=== PATIENT | male | born 1965 | race Caucasian/White ===

== ENCOUNTER 2017-05-05 03:36 | Emergency (ER) | payer OTHER ==
--- NOTE | 2017-05-05 03:49 | ED Physician Documentation ---
PD HPI CHEST PAIN - Stated complaint Stated Complaint: CHEST PAIN - Chief complaint Chief Complaint: Cardiac - History obtained from History obtained from: Patient - History of Present Illness Timing - onset: Yesterday Timing - onset during: Light activity Timing - details: Gradual onset, Constant, Waxing and waning Pain level now: 6 Quality: Pain Location: Substernal Radiation: Other (no radiation) Improved by: Other (no ameliorating factors) Worsened by: Other (no exacerbating factors) Associated symptoms: No: Shortness of air, Diaphoresis, Nausea, Vomiting, Feeling faint / dizzy, General Weakness, Palpitations, Cough Similar symptoms before: Has not had sx before Recently seen: Not recently seen Review of Systems Constitutional: reports: Reviewed and negative Cardiac: reports: Chest pain / pressure. denies: Palpitations, Pedal edema, Calf pain Respiratory: reports: Reviewed and negative GI: reports: Reviewed and negative PD PAST MEDICAL HISTORY - Past Medical History Past Medical History: Yes Cardiovascular: None Respiratory: Asthma Neuro: None Endocrine/Autoimmune: None GI: None : None HEENT: None Psych: None Musculoskeletal: None Derm: None - Past Surgical History Past Surgical History: Yes General: Other - Present Medications Home Medications: Ambulatory Orders Medication Instructions Recorded Confirmed oxyCODONE/ACET 5/325 [Percocet 5 2 each PO Q6H PRN #14 tablet 05/05/17 mg/325 mg] - Allergies Allergies/Adverse Reactions: Allergies Allergy/AdvReac Type Severity Reaction Status Date / Time aspirin AdvReac Anaphylaxis Verified 05/05/17 03:46 NSAIDS (Non-Steroidal AdvReac Anaphylaxis Verified 05/05/17 03:46 Anti-Inflamma Sulfa (Sulfonamide AdvReac Unknown Verified 05/05/17 03:47 Antibiotics) - Social History Does the pt smoke?: No Smoking Status: Never smoker Does the pt drink ETOH?: No Does the pt have substance abuse?: No - Immunizations Immunizations are current?: Yes - POLST Patient has POLST: No PD ED PE NORMAL - Vitals Vital signs reviewed: Yes - General General: Alert and oriented X 3, No acute distress, Well developed/nourished - HEENT HEENT: Moist mucous membranes - Neck Neck: Supple, no meningeal sign - Cardiac Cardiac: RRR, No murmur, No gallop, No rub - Respiratory Respiratory: No respiratory distress, Clear bilaterally - Abdomen Abdomen: Soft, Non tender - Derm Derm: Normal color, Warm and dry - Extremities Extremities: No edema Results - Vitals Vitals: Vital Signs - 24 hr 05/05/17 05/05/17 05/05/17 03:42 03:52 04:02 Temperature 36.1 C L Heart Rate 96 69 61 Respiratory 19 18 15 Rate Blood Pressure 140/116 H 131/84 H 123/81 H O2 Saturation 99 97 95 05/05/17 05/05/17 05/05/17 04:38 05:02 05:14 Temperature Heart Rate 60 52 L 72 Respiratory 17 17 Rate Blood Pressure 130/87 H 126/92 H O2 Saturation 95 95 05/05/17 05/05/17 05/05/17 05:17 05:47 06:32 Temperature Heart Rate 66 53 L 61 Respiratory 17 17 17 Rate Blood Pressure 133/103 H 120/79 126/81 H O2 Saturation 95 95 95 05/05/17 06:52 Temperature Heart Rate 52 L Respiratory 18 Rate Blood Pressure 136/82 H O2 Saturation 96 Oxygen O2 Source Room air - EKG (time done) No standard instances Rate: Rate (enter#) (64) Rhythm: NSR [place]: Normal Intervals: Normal [place] QRS: Normal Ischemia: Normal ST segments #2 Rate: Rate (enter#) (58) Rhythm: NSR [place]: Normal Intervals: Normal [place] QRS: Normal Ischemia: Normal ST segments - Labs Labs: Laboratory Tests 05/05/17 05/05/17 05/05/17 03:47 03:47 03:47 WBC 9.2 RBC 4.82 Hgb 15.0 Hct 44.0 MCV 91.3 MCH 31.1 H MCHC 34.0 RDW 13.3 Plt Count 252 MPV 7.7 Neut # 5.9 Lymph # 2.2 [place] # 0.8 Eos # 0.3 Baso # 0.1 Absolute Nucleated RBC 0.01 Nucleated RBCs 0.1 Sodium 140 Potassium 3.8 Chloride 102 Carbon Dioxide 31 Anion Gap 7.0 BUN 16 Creatinine 1.1 Estimated GFR (MDRD) 71 L Glucose 145 H Calcium 11.1 H Total Bilirubin 0.7 AST 18 ALT 21 Alkaline Phosphatase 66 Troponin I < 0.04 Total Protein 7.5 Albumin 4.2 Globulin 3.3 Albumin/Globulin Ratio 1.3 Lipase 30 07/25/17 06:13 WBC RBC Hgb Hct MCV MCH MCHC RDW Plt Count MPV Neut # Lymph # [place] # Eos # Baso # Absolute Nucleated RBC Nucleated RBCs Sodium Potassium Chloride Carbon Dioxide Anion Gap BUN Creatinine Estimated GFR (MDRD) Glucose Calcium Total Bilirubin AST ALT Alkaline Phosphatase Troponin I < 0.04 Total Protein Albumin Globulin Albumin/Globulin Ratio Lipase - Rads (name of study) chest xray Radiology: Prelim report reviewed, See rad report PD MEDICAL DECISION MAKING - ED course Complexity details: reviewed results, re-evaluated patient, considered differential, d/w patient ED course: No relief with "GI cocktail" (maalox, lidocaine, donnatol), and mild and transient relief with 2mg IV morphine. EKG x 2 are unremarkable and troponin x 2 (2 hours apart) are negative (<0.04). Encouraged to return if worse in any way , and I instructed him to contact PMD to arrange immediate follow-up. Departure - Departure Disposition: 01 Home, Self Care Clinical Impression: Chest pain Condition: Good Instructions: ED Chest Pain Atypical Unkn Cause Follow-Up: Sergio Hanna MD [Primary Care Provider] - (Call to arrange for next available appointment) Prescriptions: oxyCODONE/ACET 5/325 [Percocet 5 mg/325 mg] 2 each PO Q6H PRN #14 tablet PRN Reason: Pain Forms: Activity restrictions Discharge Date/Time: 05/05/17 07:20
[2017-05-05] MEDS ORDERED: LIDOCAINE VISCOUS 2% 15 ML UDC MM STA (04:27)
[2017-05-05] MEDS ORDERED: MAG HYDROX/AL HYDROX/SIMETH 30 ML UDC PO STA (04:27)
[2017-05-05] MEDS ORDERED: PHENobarb/HYOSCY/ATROPINE/SCOP 5 ML SYRINGE PO STA (04:27)
[2017-05-05] MEDS ORDERED: LIDOCAINE VISCOUS 2% 15 ML UDC MM ONE (04:28)
[2017-05-05] MEDS ORDERED: PHENobarb/HYOSCY/ATROPINE/SCOP 5 ML SYRINGE PO ONE (04:28)
[2017-05-05] MEDS ORDERED: MAG HYDROX/AL HYDROX/SIMETH 30 ML UDC ONE (04:28)
[2017-05-05 04:37] LABS: BASOPHILS # (AUTO) 0.1 10^3/uL (0.0-0.1); EOSINOPHILS # (AUTO) 0.3 10^3/uL (0.0-0.7); EOSINOPHILS % (AUTO) 2.8 %; LYMPHOCYTES # (AUTO) 2.2 10^3/uL (1.5-3.5); LYMPHOCYTES % (AUTO) 24.2 %; MEAN CORPUSCULAR HEMOGLOBIN 31.1 pg (27.0-31.0); MEAN CORPUSCULAR VOLUME 91.3 fL (80.0-94.0); MEAN PLATELET VOLUME 7.7 fL (7.4-11.4); MONOCYTES # (AUTO) 0.8 10^3/uL (0.0-1.0); MONOCYTES % (AUTO) 8.2 %; NEUTROPHILS # (AUTO) 5.9 10^3/uL (1.5-6.6); NEUTROPHILS % (AUTO) 63.8 %; NUCLEATED RED BLOOD CELLS AUTO 0.1 /100WBC; RED BLOOD COUNT 4.82 10^6/uL (4.70-6.10); RED CELL DISTRIBUTION WIDTH 13.3 % (12.0-15.0); UNCORRECTED WHITE BLOOD COUNT 9.2 x10^3/uL; WHITE BLOOD COUNT 9.2 x10^3/uL (4.8-10.8)
[2017-05-05 04:40] LABS: ALBUMIN/GLOBULIN RATIO 1.3 (1.0-2.2); BILIRUBIN,TOTAL 0.7 mg/dL (0.2-1.0); CALCIUM 11.1 mg/dL (8.5-10.3); CREATININE 1.1 mg/dL (0.6-1.2); POTASSIUM 3.8 mmol/L (3.5-5.0); TOTAL PROTEIN 7.5 g/dL (6.7-8.2)
--- NOTE | 2017-05-05 04:59 | XRAY Preliminary Report ---
Exam: XR Chest 2 View PA/LAT IMPRESSION: Normal 2-view chest radiography. [facility] SITE ID: [id number]
--- NOTE | 2017-05-05 05:02 | XRAY Report ---
EXAM: CHEST RADIOGRAPHY EXAM DATE: 05/05/2017 04:52 AM. CLINICAL HISTORY: Chest pain. COMPARISON: None. TECHNIQUE: 2 views. FINDINGS: Lungs/Pleura: No focal opacities evident. No pleural effusion. No pneumothorax. Normal volumes. Mediastinum: Heart and mediastinal contours are unremarkable. Other: None. IMPRESSION: Normal 2-view chest radiography. [facility] Referring Provider Line: [phone] SITE ID: [id number]
[2017-05-05] MEDS ORDERED: MORPHINE 2 MG/ML SYRINGE IVP STA (05:09)
[2017-05-05] MEDS ORDERED: MORPHINE 2 MG/ML SYRINGE ONE (05:09)
[2017-05-05 06:53] VITALS: BP 136/82
[2017-05-05] MEDS ORDERED: oxyCOD/ACETAMIN 5 MG/325 MG TABLET PO STA (07:12)
[2017-05-05] MEDS ORDERED: oxyCOD/ACETAMIN 5 MG/325 MG TABLET PO ONE (07:14)
== END 2017-05-05 07:20 | disposition home or self-care (01) ==
LOC: ED 03:36
DX: R07.9 Chest pain, unspecified (principal)
CPT/HCPCS: 36415; 71020; 80053; 83690; 84484; 85025; 93005; 96374; 99284; 99285; A9270

== ENCOUNTER 2018-06-10 20:30 | Emergency (ER) | payer OTHER ==
[2018-06-11 00:53] LABS: BASOPHILS # (AUTO) 0.1 10^3/uL (0.0-0.1); BASOPHILS % (AUTO) 0.7 %; EOSINOPHILS # (AUTO) 0.1 10^3/uL (0.0-0.7); EOSINOPHILS % (AUTO) 0.7 %; HGB - HEMOGLOBIN 16.2 g/dL (14.0-18.0); LYMPHOCYTES # (AUTO) 2.1 10^3/uL (1.5-3.5); LYMPHOCYTES % (AUTO) 13.7 %; MEAN CORPUSCULAR HEMOGLOBIN 31.4 pg (27.0-31.0); MEAN CORPUSCULAR HGB CONC 34.4 g/dL (32.0-36.0); MEAN CORPUSCULAR VOLUME 91.3 fL (80.0-94.0); MEAN PLATELET VOLUME 8.3 fL (7.4-11.4); MONOCYTES # (AUTO) 1.4 10^3/uL (0.0-1.0); MONOCYTES % (AUTO) 9.3 %; NEUTROPHILS # (AUTO) 11.7 10^3/uL (1.5-6.6); NEUTROPHILS % (AUTO) 75.6 %; PLT - PLATELET COUNT 271 10^3/uL (130-450); RED BLOOD COUNT 5.17 10^6/uL (4.70-6.10); RED CELL DISTRIBUTION WIDTH 13.2 % (12.0-15.0); WHITE BLOOD COUNT 15.5 x10^3/uL (4.8-10.8)
[2018-06-11 00:54] LABS: ALBUMIN 4.7 g/dL (3.2-5.5); ALBUMIN/GLOBULIN RATIO 1.4 (1.0-2.2); BILIRUBIN,TOTAL 1.4 mg/dL (0.2-1.0); CALCIUM 10.9 mg/dL (8.5-10.3); CREATININE 0.9 mg/dL (0.6-1.2); TOTAL PROTEIN 8.1 g/dL (6.7-8.2)
--- NOTE | 2018-06-11 00:56 | ED Physician Documentation ---
PD HPI ABD PAIN - Stated complaint Stated Complaint: ABD PX - Chief complaint Chief Complaint: Abd Pain - History obtained from History obtained from: Patient - History of Present Illness Timing - onset: Enter time (21:00), Yesterday Timing - details: Abrupt onset, Waxing and waning Pain level max: 8 Pain level now: 5 Quality: Pain Location: RUQ, Epigastric Radiation: Other (does not radiate) Improved by: Other (no ameliorating factors) Worsened by: Other (no exacerbating factors) Associated symptoms: Nausea, Vomiting. No: Fever, Diarrhea, Constipation Similar symptoms before: Has not had sx before Recently seen: Not recently seen Review of Systems Constitutional: denies: Fever, Chills, Sweats Cardiac: reports: Reviewed and negative Respiratory: reports: Reviewed and negative GI: reports: Abdominal Pain, Nausea, Vomiting. denies: Constipation, Diarrhea : denies: Dysuria, Frequency Musculoskeletal: denies: Back pain PD PAST MEDICAL HISTORY - Past Medical History Past Medical History: No Cardiovascular: None Respiratory: Asthma, COPD Neuro: None Endocrine/Autoimmune: None GI: Diverticulitis : None HEENT: None Psych: None Musculoskeletal: None Derm: None - Past Surgical History Past Surgical History: Yes General: Other HEENT: Tonsil/Adenoidectomy - Present Medications Home Medications: Ambulatory Orders Medication Instructions Recorded Confirmed Albuterol 2.5 mg INH Q4H PRN 06/10/18 06/10/18 Fluticasone/Salmeterol [Advair 1 each IH 06/10/18 100-50 Diskus] Ipratropium/Albuterol [Combivent 4 gm IH 06/10/18 Respimat] Ondansetron Odt [Zofran] 4 mg TL Q6H PRN #10 tablet 06/11/18 oxyCODONE/ACET 5/325 [Percocet 5 1 - 2 each PO Q6H PRN #14 tablet 06/11/18 mg/325 mg] - Allergies Allergies/Adverse Reactions: Allergies Allergy/AdvReac Type Severity Reaction Status Date / Time aspirin AdvReac Anaphylaxis Verified 06/10/18 20:37 NSAIDS (Non-Steroidal AdvReac Anaphylaxis Verified 06/10/18 20:37 Anti-Inflamma Sulfa (Sulfonamide AdvReac Unknown Verified 06/10/18 20:37 Antibiotics) - Social History Does the pt smoke?: No Smoking Status: Never smoker Does the pt drink ETOH?: No Does the pt have substance abuse?: No - Immunizations Immunizations are current?: Yes - POLST Patient has POLST: No PD ED PE NORMAL - Vitals Vital signs reviewed: Yes - General General: Alert and oriented X 3, Well developed/nourished, Other (appears uncomfortable due to pain) - HEENT HEENT: Moist mucous membranes - Cardiac Cardiac: RRR, No murmur - Respiratory Respiratory: No respiratory distress, Clear bilaterally - Abdomen Abdomen: Soft, Non distended, Other (mild/moderate RUQ and epigastric tenderness to palpation without rebound or guarding) - Back Back: No CVA TTP - Derm Derm: Normal color, Warm and dry, No rash Results - Vitals Vitals: Oxygen O2 Source Room air - Labs Labs: Laboratory Tests 06/11/18 06/11/18 00:30 00:30 WBC 15.5 H RBC 5.17 Hgb 16.2 Hct 47.2 MCV 91.3 MCH 31.4 H MCHC 34.4 RDW 13.2 Plt Count 271 MPV 8.3 Neut # (Auto) 11.7 H Lymph # (Auto) 2.1 [place] # (Auto) 1.4 H Eos # (Auto) 0.1 Baso # (Auto) 0.1 Absolute Nucleated RBC 0.02 Nucleated RBC % 0.1 Platelet Estimate NORMAL (130-450,000) Platelet Morphology 1+ GIANT PLATELETS Sodium 134 L Potassium 3.5 Chloride 97 L Carbon Dioxide 28 Anion Gap 9.0 BUN 12 Creatinine 0.9 Estimated GFR (MDRD) 89 Glucose 125 H Calcium 10.9 H Total Bilirubin 1.4 H AST 20 ALT 24 Alkaline Phosphatase 66 Total Protein 8.1 Albumin 4.7 Globulin 3.4 Albumin/Globulin Ratio 1.4 Lipase 34 - Rads (name of study) RUQ US Radiology: Prelim report reviewed, See rad report PD MEDICAL DECISION MAKING - ED course Complexity details: reviewed results, re-evaluated patient, considered differential, d/w patient - Sepsis Event Vital Signs: Oxygen O2 Source Room air Departure - Departure Disposition: 01 Home, Self Care Clinical Impression: Biliary colic Condition: Good Instructions: ED [place] W Biliary Colic Follow-Up: Janene Garnett MD [Provider Admit Priv/Credential] - Prescriptions: Ondansetron Odt [Zofran] 4 mg TL Q6H PRN #10 tablet PRN Reason: Nausea / Vomiting oxyCODONE/ACET 5/325 [Percocet 5 mg/325 mg] 1 - 2 each PO Q6H PRN #14 tablet PRN Reason: Pain Discharge Date/Time: 06/11/18 04:18
[2018-06-11] MEDS ORDERED: HYDROmorphone 1 MG/ML CARPUJECT IVP STA (01:20)
[2018-06-11 01:29] LABS: PLATELET ESTIMATE, MANUAL NORMAL (130-450,000) (NORMAL); PLATELET MORPHOLOGY 1+ GIANT PLATELETS (NORMAL)
--- NOTE | 2018-06-11 02:56 | Ultrasound Report ---
Reason: RUQ pain, tenderness Procedure Date: 06/11/2018 Accession Number: [id number] / [id number] Procedure: US - Abdomen Limited CPT Code: FULL RESULT: EXAM: ABDOMEN ULTRASOUND LIMITED, RUQ EXAM DATE: 06/11/2018 02:42 AM. CLINICAL HISTORY: RUQ pain, tenderness. COMPARISON: CT 08/09/2013. TECHNIQUE: Real-time scanning was performed with static images obtained. FINDINGS: Liver: Normal in size and echotexture. 15.9 cm. Main portal vein flow: Hepatopetal. Gallbladder: Cholelithiasis, with wall thickening, suggestive of acute cholecystitis. Biliary System: CBD measures 6 mm. No intrahepatic or extrahepatic ductal dilatation. Other: No right hydronephrosis. No free fluid. IMPRESSION: Cholelithiasis, with gallbladder wall thickening, suggestive of acute cholecystitis. No biliary obstruction. [facility]
[2018-06-11] MEDS ORDERED: oxyCODONE 5 MG TABLET PO STA (04:05)
[2018-06-11 04:15] VITALS: BP 117/87
== END 2018-06-11 04:18 | disposition home or self-care (01) ==
LOC: ED 20:30
DX: K80.50 Calculus of bile duct without cholangitis or cholecystitis without obstruction (principal)
CPT/HCPCS: 76705; 80053; 83690; 85025; 96374; 99283; A9270; J1170; 36415

== ENCOUNTER 2023-11-27 16:25 | Outpatient (CLI) | payer OTHER ==
--- NOTE | 2023-11-27 19:10 | XRAY Report ---
PROCEDURE: Shoulder 2+V RT INDICATIONS: RIGHT SHOULDER STRAIN TECHNIQUE: 3 views of the shoulder were acquired. COMPARISON: None FINDINGS: Bones: No fractures or dislocations. No suspicious bony lesions. Visualized ribs appear intact. Soft tissues: No suspicious soft tissue calcifications. IMPRESSION: Unremarkable shoulder radiographs Reviewed by: Dariusz Walton MD on 11/27/2023 6:[address] [facility] Approved by: Dariusz Walton MD on 11/27/2023 6:[address] Station ID: [id number]
== END 2023-11-27 16:26 | disposition home or self-care (01) ==
LOC: DI 16:25
PROVIDERS: ATTEND Family Medicine
DX: S46.011A Strain of muscle(s) and tendon(s) of the rotator cuff of right shoulder, initial encounter (principal)

== ENCOUNTER 2024-04-30 09:11 | Outpatient (CLI) | payer OTHER ==
--- NOTE | 2024-05-02 13:27 | MRI Report ---
PROCEDURE: Shoulder RT WO INDICATIONS: SHOULDER STRAIN TECHNIQUE: Noncontrast oblique coronal T2 fast spin echo with fat saturation, oblique sagittal T1 spin echo and T2 fast spin echo with fat saturation, axial T1 spin echo and T2 fast spin echo with fat saturation t hrough the shoulder. COMPARISON: Shoulder radiograph dated 11/27/2023. FINDINGS: Image quality: Excellent. Rotator cuff: Full-thickness rupture involving anterior fibers of distal supraspinatus at its inserti on on humeral head is seen with up to 1 cm medial retraction of torn tendon fibers and a fluid-filled gap measures 1.1 cm in AP dimension. Low-grade articular surface partial-thickness involving rest of the supraspinatus is seen. Distal infraspinatus tendinosis is also noted. Low-grade intrasubstance p artial thickness tear is seen involving distal subscapularis. Mild supraspinatus muscle atrophy is se en on sagittal images. Bones and bursae: [id number] acromioclavicular joint osteoarthritic changes are seen with joint space narrowing, subchondral sclerosis and edema and downward osteophyte formation depressing on mus culotendinous junction of supraspinatus. No displaced fracture or dislocation. Type I acromion, witho ut an os acromiale. Small amount of subacromial subdeltoid bursal fluid is seen, no loose bodies. Capsule and soft tissues: Fraying of superior anterior labrum with T2 hyperintense signal its seen co ncerning for superior anterior labral tear. The long head of the biceps tendon demonstrates normal lo cation and morphology. The rotator interval appears normal, without fibrosis. The coracohumeral lig ament is normal in thickness. IMPRESSION: 1. Full-thickness rupture involving anterior fibers of distal supraspinatus at its insertion on humer al head with up to 1 cm medial retraction of torn tendon fibers and a fluid-filled gap measures 1.1 c m in AP dimension. Mild supraspinatus muscle atrophy. 2. Low-grade articular surface partial-thickness tear involving rest of the supraspinatus. Distal inf raspinatus tendinosis. Low-grade intrasubstance partial thickness tear involving distal subscapularis . 3. Mild to moderate acromioclavicular joint osteoarthritis. No fracture or dislocation. Small amount of subacromial subdeltoid bursal fluid, no loose bodies. 4. Finding is concerning for subtle superior anterior labral tear. Reviewed by: Davonte Lowe MD on 05/02/2024 1:26 PM PDT Approved by: Davonte Lowe MD on 05/02/2024 1:26 PM PDT Station ID: [id number]
== END 2024-04-30 09:12 | disposition home or self-care (01) ==
LOC: DI 09:11
PROVIDERS: ATTEND Physician Assistant Surgical
DX: M75.121 Complete rotator cuff tear or rupture of right shoulder, not specified as traumatic (principal); M62.511 Muscle wasting and atrophy, not elsewhere classified, right shoulder; M19.011 Primary osteoarthritis, right shoulder; M75.51 Bursitis of right shoulder